=== PATIENT | female | born 2000 ===

== ENCOUNTER 2021-11-24 11:34 | Emergency (ER) | payer SELFPAY ==
[2021-11-24] MEDS ORDERED: LIDOCAINE-MPF (1%) 10 MG/1 ML VIAL 5 ML INFILTRATI ONE ×2 (13:34→14:02)
[2021-11-24 13:46] LABS: Bilirubin,Urine NEG (Negative); Blood,Urine NEG (Negative); Color,Urine Yellow (Yellow); Mucus,Urine 3+ /HPF; Protein,Urine <15 mg/dL mg/dL (Negative); Urobilinogen,Urine < 2.0 mg/dL (<2.0)
[2021-11-24 13:52] LABS: HCG Qualitative,Urine Negative (Negative)
--- NOTE | 2021-11-24 14:08 | Emergency Department Report ---
- General Chief complaint: Urogenital-Female Stated complaint: VAGINAL PAIN/POSS CYST Source: patient Mode of arrival: Ambulatory Limitations: No Limitations - History of Present Illness Initial comments: 21-year-old female presents to the ED complaining right labia swelling x2 weeks. Patient states that she has been putting warm compresses and doing sitz bath without any relief. She states that she is has protected sex. Patient denies any fever chills or vaginal discharge at present. She denies any abdominal pain. She is alert and oriented x3. No acute distress noted .no ill appearance noted. Patient denies any dysuria at present time. MD complaint: abscess/boil Onset/Timin -: week(s) Severity: moderate Severity scale (0 -10): 8 Quality: burning Consistency: intermittent Improves with: none Worsens with: none Associated symptoms: denies other symptoms - Related Data Previous Rx's Medication Instructions Recorded Last Taken Type Ibuprofen [Motrin] 800 mg PO Q8HR PRN 3 Days #12 11/24/21 Unknown Rx tablet Sulfamethoxazole/Trimethoprim 1 each PO BID 7 Days #14 tab 11/24/21 Unknown Rx [Bactrim DS TAB] cephALEXin [Keflex] 500 mg PO Q12HR 7 Days #14 cap 11/24/21 Unknown Rx Allergies Allergy/AdvReac Type Severity Reaction Status Date / Time No Known Allergies Allergy Unverified 11/24/21 12:17 Abscess Boil HPI - HPI Chief Complaint: Urogenital-Female Stated Complaint: VAGINAL PAIN/POSS CYST Home Medications: Previous Rx's Medication Instructions Recorded Last Taken Type Ibuprofen [Motrin] 800 mg PO Q8HR PRN 3 Days #12 11/24/21 Unknown Rx tablet Sulfamethoxazole/Trimethoprim 1 each PO BID 7 Days #14 tab 11/24/21 Unknown Rx [Bactrim DS TAB] cephALEXin [Keflex] 500 mg PO Q12HR 7 Days #14 cap 11/24/21 Unknown Rx Allergies/Adverse Reactions: Allergies Allergy/AdvReac Type Severity Reaction Status Date / Time No Known Allergies Allergy Unverified 11/24/21 12:17 ED Review of Systems ROS: Stated complaint: VAGINAL PAIN/POSS CYST Other details as noted in HPI Constitutional: denies: chills, fever Eyes: denies: eye pain, eye discharge, vision change ENT: denies: ear pain, throat pain Respiratory: denies: cough, shortness of breath, wheezing Cardiovascular: denies: chest pain, palpitations Endocrine: no symptoms reported Gastrointestinal: denies: abdominal pain, nausea, diarrhea Genitourinary: denies: urgency, dysuria, discharge Musculoskeletal: denies: back pain, joint swelling, arthralgia Skin: lesions. denies: rash Neurological: denies: headache, weakness, paresthesias Psychiatric: denies: anxiety, depression Hematological/Lymphatic: denies: easy bleeding, easy bruising ED Past Medical Hx - Past Medical History Previous Medical History?: No - Surgical History Past Surgical History?: No - Social History Smoking Status: Never Smoker - Medications Home Medications: Home Medications Medication Instructions Recorded Confirmed Last Taken Type Ibuprofen [Motrin] 800 mg PO Q8HR PRN 3 Days #12 11/24/21 Unknown Rx tablet Sulfamethoxazole/Trimethoprim 1 each PO BID 7 Days #14 tab 11/24/21 Unknown Rx [Bactrim DS TAB] cephALEXin [Keflex] 500 mg PO Q12HR 7 Days #14 cap 11/24/21 Unknown Rx ED Physical Exam - General Limitations: No Limitations General appearance: alert, in no apparent distress - Head Head exam: Present: atraumatic, normocephalic - Eye Eye exam: Present: normal appearance - ENT ENT exam: Present: mucous membranes moist - Neck Neck exam: Present: normal inspection - Respiratory Respiratory exam: Present: normal lung sounds bilaterally. Absent: respiratory distress - Cardiovascular Cardiovascular Exam: Present: regular rate, normal rhythm. Absent: systolic murmur, diastolic murmur, rubs, gallop - GI/Abdominal GI/Abdominal exam: Present: soft, normal bowel sounds - External exam: Present: erythema, swelling, other (Hard tender nodule noted to the bottom of the right labia) - Extremities Exam Extremities exam: Present: normal inspection - Back Exam Back exam: Present: normal inspection - Neurological Exam Neurological exam: Present: alert, oriented X3 - Psychiatric Psychiatric exam: Present: normal affect, normal mood - Skin Skin exam: Present: warm, dry, intact, normal color. Absent: rash ED Course Vital Signs 11/24/21 12:17 Temperature 98.7 F Pulse Rate 96 H Respiratory 18 Rate Blood Pressure 122/78 O2 Sat by Pulse 99 Oximetry ED Medical Decision Making - Medical Decision Making 21-year-old female presents to the ED complaining right labia swelling x2 weeks. Patient states that she has been putting warm compresses and doing sitz bath without any relief. She states that she is has protected sex. Patient denies any fever chills or vaginal discharge at present. She denies any abdominal pain. She is alert and oriented x3. No acute distress noted .no ill appearance noted. Patient denies any dysuria at present time. Physical examination patient had hard tender nodule noted to the bottom of the right labia. Attempted to I&D unsuccessful. Patient urinalysis shows UTI. Rocephin 1 g given IM in ED. patient to follow-up [facility] Rechecked the patient is resting quietly quietly and comfortable and feeling better. I discussed the results of diagnostic study, my clinical impression and the plan for further treatment with the patient. Patient agrees with plan and discharge at this present time. All question addressed. I have given the patient instruction regarding a diagnosis ,expectation ,follow- up and return precaution. I explained to the patient that emergent condition may arise and to return to the ED for new worsen and any new persisting condition. I have explained the importance of following up with the primary care physician or referral physician listed below has instructed. The patient verbalized understanding of discharge instruction. Critical care attestation.: If time is entered above; I have spent that time in minutes in the direct care of this critically ill patient, excluding procedure time. ED Disposition Clinical Impression: Acute urinary tract infection, Abscess Disposition: 01 HOME / SELF CARE / HOMELESS Is pt being admited?: No Does the pt Need Aspirin: No Condition: Stable Instructions: Skin Abscess, Antibiotic Medicine, Adult, [id number], Urinary Tract Infection, Adult, [id number] Additional Instructions: Take medication as prescribed Return to the ED for any worsening symptoms Prescriptions: Sulfamethoxazole/Trimethoprim [Bactrim DS TAB] 1 each PO BID 7 Days #14 tab cephALEXin [Keflex] 500 mg PO Q12HR 7 Days #14 cap Ibuprofen [Motrin] 800 mg PO Q8HR PRN 3 Days #12 tablet PRN Reason: Pain, Mild (1-3) Referrals: [facility] [Provider Group] - 3-5 Days Forms: Work/School Release Form(ED) Time of Disposition: 14:13
[2021-11-24 16:07] VITALS: BP 118/78
== END 2021-11-24 16:05 | disposition home or self-care (01) ==
LOC: ED 11:34
DX: N39.0 Urinary tract infection, site not specified (principal); N76.4 Abscess of vulva
CPT/HCPCS: 81001; 81025; 87086; 96372; 99283